=== PATIENT | male | born 1970 | race Caucasian/White ===

== ENCOUNTER 2017-05-27 00:02 | Inpatient (IN) | payer MEDICARE, MEDICAID ==
[2017-05-27 00:26] LABS: BASOPHILS % (AUTO) 1 % (0-3); EOSINOPHILS % (AUTO) 2 % (0-9); HEMATOCRIT 36 % (39-53); MEAN CORPUSCULAR VOLUME 84 fL (80-100); MONOCYTES % (AUTO) 6.9 % (0-12); NEUTROPHILS % (AUTO) 53.4 % (37-80)
[2017-05-27] MEDS ORDERED: SODIUM CHLORIDE 0.9% 1000ML 1,000 ML IV ONE (00:30)
[2017-05-27 00:49] LABS: ALBUMIN 3.5 gm/dl (3.4-5.0); ALT 37 IU/L (14-63); CALCIUM 8.4 mg/dl (8.5-10.1); GLOM FILT RATE 85 mL/min (>60); POTASSIUM 3.8 mMol/L (3.5-5.1); SALICYLATE < 2.8 mg/dl (2.8-30.0); SODIUM 145 mMol/L (136-145); THYROID STIMULATING HORMONE 1.478 uIU/ml (0.358-3.740)
[2017-05-27] MEDS ORDERED: MAGNESIUM SULFATE 1 GM/2 ML SOL IV ONE ×2 (01:04→01:07)
[2017-05-27 12:12] LABS: APPEARANCE,URINE Clear; BILIRUBIN,URINE NEGATIVE (NEGATIVE); COLOR,URINE Yellow; GLUCOSE, URINE (UA) NEGATIVE (NEGATIVE); KETONES,URINE NEGATIVE (NEGATIVE); LEUKOCYTE ESTERASE ,URINE NEGATIVE (NEGATIVE); NITRATE,URINE NEGATIVE (NEGATIVE); OCCULT BLOOD,URINE TRACE LYSED (NEG-TRACE); PH,URINE 5.5; UROBILINOGEN,URINE 0.2 (0.2-1.0 EU)
[2017-05-27] MEDS ORDERED: ALBUTEROL HFA 60 PUFF/INHALER INH PRN (12:24)
[2017-05-27 12:25] LABS: AMPHETAMINES NEGATIVE (NEGATIVE); METHADONE NEGATIVE (NEGATIVE); OPIATES(OP13) NEGATIVE (NEGATIVE); OXYCODONE(OXY) NEGATIVE (NEGATIVE); PROPOXYPHENE(PPX) NEGATIVE (NEGATIVE); TRICYCLIC ANTIDEPRESSANTS NEGATIVE (NEGATIVE)
[2017-05-27] MEDS ORDERED: NITROGLYCERIN 0.4 MG TAB SL PRN (12:30)
[2017-05-27 12:35] LABS: RBC,URINE NEGATIVE (0-3AV/HPF); WBC,URINE NEGATIVE (0-5AV/HPF)
[2017-05-27] MEDS: NICOTINE 7 MG PATCH TD SCH (15:06)
[2017-05-27] MEDS: GABAPENTIN 100 MG CAP PO SCH ×2 (15:07→21:05)
[2017-05-27] MEDS: SODIUM CHLORIDE 0.9% FLUSH 10 ML SOL IV SCH ×2 (15:08→21:00)
[2017-05-27] MEDS: CLOPIDOGREL 75 MG TAB PO SCH (21:05)
[2017-05-27] MEDS: FAMOTIDINE 20 MG TAB PO SCH (21:05)
[2017-05-27] MEDS: LAMOTRIGINE 100 MG TAB PO SCH (21:05)
[2017-05-27] MEDS: APAP/OXYCODONE 325/5 TAB PO PRN (23:47)
[2017-05-28] MEDS: RILUZOLE 50 MG PO SCH ×3 (00:14→20:52)
[2017-05-28] MEDS: BUDESONIDE/FORMOTEROL 160/4.5 AER INH SCH ×3 (00:15→20:52)
[2017-05-28] MEDS: SODIUM CHLORIDE 0.9% FLUSH 10 ML SOL IV SCH ×3 (04:28→20:46)
[2017-05-28] MEDS: APAP/OXYCODONE 325/5 TAB PO PRN ×3 (07:59→18:09)
[2017-05-28] MEDS: DULOXETINE HCL 30 MG CAPSULE.DR PO SCH (09:30)
[2017-05-28] MEDS: PANTOPRAZOLE SODIUM 40 MG ECT PO SCH (09:31)
[2017-05-28] MEDS: LAMOTRIGINE 100 MG TAB PO SCH ×2 (09:33→20:51)
[2017-05-28] MEDS: GABAPENTIN 100 MG CAP PO SCH ×3 (09:33→20:51)
[2017-05-28] MEDS: MULTIVITAMIN2 1 EA TAB PO SCH (09:34)
[2017-05-28] MEDS: FAMOTIDINE 20 MG TAB PO SCH ×2 (09:35→20:51)
[2017-05-28] MEDS: BISACODYL 5 MG TAB ECT PO PRN ×2 (09:36→20:59)
[2017-05-28] MEDS: NICOTINE 7 MG PATCH TD SCH ×2 (10:34→14:55)
[2017-05-28] MEDS: Non-Formulary Medication MISC (Umeclidinium Bromide [Incruse Ellipta] 1 PUFF) INH SCH (12:55)
[2017-05-28 15:56] VITALS: RESP 16; O2SAT 95
[2017-05-28] MEDS: CLOPIDOGREL 75 MG TAB PO SCH (20:52)
[2017-05-28] MEDS ORDERED: TRAZODONE HYDROCHLORIDE 50 MG TAB PO SCH (21:00)
[2017-05-29] MEDS: APAP/OXYCODONE 325/5 TAB PO PRN ×3 (00:20→11:49)
[2017-05-29] MEDS: SODIUM CHLORIDE 0.9% FLUSH 10 ML SOL IV SCH (05:58)
[2017-05-29 08:18] LABS: CALCIUM 8.3 mg/dl (8.5-10.1)
[2017-05-29] MEDS: RILUZOLE 50 MG PO SCH (08:24)
[2017-05-29] MEDS: FAMOTIDINE 20 MG TAB PO SCH (08:25)
[2017-05-29] MEDS: DULOXETINE HCL 30 MG CAPSULE.DR PO SCH (08:25)
[2017-05-29] MEDS: LAMOTRIGINE 100 MG TAB PO SCH (08:25)
[2017-05-29] MEDS: GABAPENTIN 100 MG CAP PO SCH (08:26)
[2017-05-29] MEDS: PANTOPRAZOLE SODIUM 40 MG ECT PO SCH (08:26)
[2017-05-29] MEDS: MULTIVITAMIN2 1 EA TAB PO SCH (08:26)
[2017-05-29] MEDS: BISACODYL 5 MG TAB ECT PO PRN (08:28)
[2017-05-29] MEDS: BUDESONIDE/FORMOTEROL 160/4.5 AER INH SCH (08:55)
[2017-05-29] MEDS: Non-Formulary Medication MISC (Umeclidinium Bromide [Incruse Ellipta] 1 PUFF) INH SCH (08:56)
[2017-05-29 11:20] VITALS: PULSE 58; TEMP 98.3
[2017-05-29 11:21] VITALS: BP 99/67
[2017-05-29] MEDS: NICOTINE 7 MG PATCH TD SCH ×2 (11:46→14:02)
[2017-05-29] MEDS ORDERED: PNEUMOC 13-VAL CONJ-DIP CRM/PF 0.5 ML SYRINGE IM ONE (12:24)
== END 2017-05-29 15:00 | disposition home or self-care (01) | DRG 918 ==
LOC: ED 00:02 → ACUTE CARE 01:40
PROVIDERS: ADMIT Emergency Medicine; ATTEND Emergency Medicine
DX: T42.4X2A Poisoning by benzodiazepines, intentional self-harm, initial encounter (principal); G12.21 Amyotrophic lateral sclerosis; M25.511 Pain in right shoulder; R40.0 Somnolence; R40.2412 Glasgow coma scale score 13-15, at arrival to emergency department; F32.9 Major depressive disorder, single episode, unspecified; M54.9 Dorsalgia, unspecified
CPT/HCPCS: 36415; 80048; 80053; 80305; 80307; 81001; 83735; 84443; 85025; 90670; 93005; 93012; 94762; 96365; 99284; J3475; A9270-GY; G0008